=== PATIENT | male | born 1950 | race Caucasian/White ===

== ENCOUNTER 2020-01-14 12:00 | Outpatient (CLI) | payer MEDICARE, SELFPAY | END 2020-01-14 12:01 | disposition home or self-care (01) | LOC: SLEEP 01-15 09:37 | PROVIDERS: PCP Family Medicine; Visit Provider Family Medicine | DX: G47.33 Obstructive sleep apnea (adult) (pediatric) (principal) | CPT/HCPCS: G0399 ==

== ENCOUNTER 2023-01-19 16:19 | Outpatient (CLI) | payer MEDICARE, OTHER, SELFPAY ==
--- NOTE | 2023-01-19 16:23 | XRR_ITS ---
PROCEDURE INFORMATION: Exam: XR Left Knee Exam date and time: 01/19/2023 4:30 PM Age: 72 years old Clinical indication: Pain; Knee; Left; Additional info: Left medial knee pain TECHNIQUE: Imaging protocol: Radiologic exam of the left knee. Views: 3 views. COMPARISON: No relevant prior studies available. FINDINGS: Bones/joints: Osseous structures are intact. Negative for fracture. Joint spaces are preserved. Soft tissues: Normal. XR/XR knee LT 3V* [id number] IMPRESSION: No acute findings.
== END 2023-01-19 16:20 | disposition home or self-care (01) ==
PROVIDERS: PCP Family Medicine; Visit Provider Clinical Nurse Specialist Adult Health
DX: M25.562 Pain in left knee
CPT/HCPCS: 73562

== ENCOUNTER → 2023-03-22 07:40 | Outpatient (BNVA) | payer MEDICARE, OTHER, SELFPAY | PROVIDERS: PCP Family Medicine; Visit Provider Otolaryngology | DX: G47.33 Obstructive sleep apnea (adult) (pediatric) (principal) | CPT/HCPCS: 99203 ==

== ENCOUNTER → 2023-11-08 13:35 | Outpatient (BNVA) | payer MEDICARE, OTHER, SELFPAY | PROVIDERS: PCP Family Medicine; Referring Provider Electrodiagnostic Medicine; Visit Provider Student in an Organized Health Care Education/Training Program | DX: M65.312 Trigger thumb, left thumb | CPT/HCPCS: 73130; 99203 ==

== ENCOUNTER 2025-02-08 00:36 | Emergency (ER) | payer MEDICARE, SELFPAY ==
--- OUTSIDE RECORDS SUMMARY | 2025-02-08 00:41 | XMS_ITS | Clinical Summary ---
Author Organization [facility] Administrative Offices Address [address] [place] [id number] Care Team Providers Care Remote Sensing Analyst Name Role Phone Unavailable Primary Care Provider Unavailabl e Allergies No known active allergies Medications lisinopriL (PRINIVIL) 10 mg tablet 02/01/2022 Active omeprazole (PriLOSEC) 10 mg Capsule, Delayed Release(E.C.) Take 10 mg by mouth 1 time daily as needed. Active MULTIVITAMIN WITH MINERALS ORAL Take by mouth. 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 04/05/2022 Family History Medical History Relation Name Comments No Known Problems Father No Known Problems Mother Relation Name Status Comments Daughter Alive Father Mother Son Alive Social History Tobacco Use Types Packs/Day Years Used Date Smoking Tobacco: Never Smokeless Tobacco: Never Tobacco Cessation:Counseling Given: Not Answered Alcohol Use Standard Drinks/Week Comments Never 0 (1 standard drink = 0.6 oz pur e alcohol) Sex and Gender Information Value Date Recorded Sex Assigned at Not on file Legal Sex Male 3:45 PM CDT Gender Identity Not on file Sexual Orientation Not on file Last Filed Vital Signs Vital Sign Reading Time Taken Comments Blood Pressure 130/84 08/25/2022 10:47 AM CDT Pulse 65 08/25/2022 10:47 AM CDT Temperature 36.1 C (96.9 F) 05/06/2022 1:25 PM ESTIMATOR BINDING Respiratory Rate 18 05/06/2022 1:25 PM ESTIMATOR BINDING Oxygen Saturation 98% 08/25/2022 10:47 AM CDT Inhaled Oxygen Concentration - - Weight 111.6 kg (246 lb) 08/25/2022 10:47 AM CDT Height 185.4 cm (6' 1 ) 08/25/2022 10:47 AM CDT Body Mass Index 32.46 08/25/2022 10:47 AM CDT Plan of Treatment Health Maintenance Due Date Last Done Comments DTAP/TDAP/TD VACCINES (1 - Tdap) 12/19/1970 COLORECTAL SCREENING 12/19/1996 Colorectal Cancer Screening 12/19/1996 FIT-DNA Q 3 years 12/19/1996 FIT/FOBT Q 1 year 12/19/1996 Flex Sig/CT Colonography Q 5 years 12/19/1996 PNEUMOCOCCAL VACCINE 50+ YEA RS (1 of 1 - PCV) 12/19/2001 ZOSTER VACCINE (1 of 2) 12/19/2001 COVID-19 Vaccine (4 - season) 2024 11/12/2021, 12/27/2020, 12/06/2020 INFLUENZA VACCINE (#1) 2025 03/06/2021 RSV VACCINE (60+ or ) (1 - 1-dose 75+ series) 12/19/2026 Medical Devices Implanted Type Area Supervisor Gelatin Plant Device Identifier Shelf Expiration Date Model / Serial / Lot Pros Piston Eclipse 0.6x4.5mm [id number] - [id number] Implanted:Qty: 1 on 05/06/2022 by Yvan Anderson DO at [facility] Ear Left: Ear [employer] 01/04/2027 [id number] / / [id number] Hemostatic Surgifoam [id number] Implanted:Qty: 1 on 05/06/2022 by Yvan Anderson DO at [facility] Hemostatic Left: Ear [employer] [id number] 10/14/20251971 [id number] Insurance MEDICARE PART A AND B [employer] SUPP Advance Directives For more information, please contact: [phone] * Full Code (Latest Code Status on File) Date Activated Date Inactivated Comments 05/06/2022 11:53 AM 05/06/2022 5:09 PM * Full Code Date Activated Date Inactivated Comments 05/06/2022 8:20 AM 05/06/2022 11:53 AM
[2025-02-08 00:44] VITALS: BP 161/91; PULSE 71; RESP 20; TEMP 36.6; O2SAT 98; BMI 30.3
--- NOTE | 2025-02-08 00:47 | XRR_ITS ---
PROCEDURE INFORMATION: Exam: XR Right Shoulder Exam date and time: 02/08/2025 12:49 AM Age: 74 years old Clinical indication: Pain and injury or trauma; Fall; Blunt trauma (contusions or hematomas); Shoulder; Right; Additional info: Trauma/fall TECHNIQUE: Imaging protocol: Radiologic exam of the right shoulder. Views: 2 or more views. COMPARISON: No relevant prior studies available. FINDINGS: Bones/joints: Degenerative changes in the spine. Flowing syndesmophytes in the visualized thoracic spine, raising suspicion for ankylosing spondylitis. No acute fracture. No dislocation. Normal bone mineralization. Mild degenerative changes at the right shoulder. Lungs: Visualized lungs are clear. Vasculature: Vascular calcifications in the aorta. Soft tissues: No soft tissue swelling/emphysema. No radiopaque foreign body. XR/XR shoulder RT min 2V* [id number] IMPRESSION: 1. No acute fracture of the right shoulder. Followup radiographs recommended in 7-14 days if clinical concern for fracture persists. 2. Flowing syndesmophytes in the visualized thoracic spine, raising suspicion for ankylosing spondylitis. Recommend clinical correlation. 3. Incidental/nonacute findings are listed in the report.
--- NOTE | 2025-02-08 01:30 | ED_ITS ---
HPI - Extremity Problem General: Chief complaint: Extremity Injury, Upper Stated complaint: Hurt you shoulder Time Seen by Provider: 02/08/25 00:41 History of Present Illness: 74-year-old presents emergency room afte r he fell out of bed. He has some PTSD got alarmed woke up from sleep and fell out of bed landing on his right shoulder he has pain lateral aspect of the shoulder. Did not have any other injuries did not strike his head no loss consciousness Related Data Previous Rx's ?Medication ?Instructions ?Recorded pantoprazole 40 mg tablet,delayed 40 mg PO DAILY #90 t abs 01/20/23 release lisinopril 10 mg tablet 10 mg PO DAILY #90 tabs 07/08 09/28 diclofenac sodium 75 mg 75 mg PO Q12H PRN pain #20 t abs 02/08/25 tablet,delayed release Allergies Allergy/AdvReac Type Severity Reaction Status Date / Time No Known Allergies Allergy Verified 07/30/24 08:16 Review of Systems Musc: Reports: joint pain PFS ED PFSH: Medical History Essential hypertension Social History Smoking and tobacco/nicotine status: never used tobacco/nicotine Physical Exam Const: COMMON NORMALS: no acute distress GENERAL APPEARANCE: cooperative and comfortable ORIENTATION/CONSCIOUSNESS: Yes awake, Yes oriented to person, Yes oriented to place and Yes oriented to time HENMT: COMMON NORMALS: normocephalic, atraumatic and hearing grossly normal bilaterally HEAD & SCALP: normocephalic and atraumatic Resp: COMMON NORMALS: normal respiratory effort, No retractions and No use of accessory muscles Extremity: NARRATIVE EXTREMITY EXAM: No pain over the biceps tendon. With compression at the AC joint there is a slight crepitus. No obvious deformity. Neuro: SENSORIUM/ORIENTATION: Yes oriented to person, Yes oriented to place and Yes oriented to time Skin: COMMON NORMALS: no rashes or lesions noted GENERAL SKIN EXAM: no rashes or lesions noted Course Vital Signs: Vital signs: Vital Signs Temperature 97.8 F 02/08/25 00:44 Pulse Rate 71 02/08/25 00:44 Respiratory Rate 20 H 02/08/25 00:44 Blood Pressure 161/91 02/08/25 00:44 Pulse Oximetry 98 02/08/25 00:44 MDM - Extremity (Nontraumatic) Medical Decision Making On x-ray there is slight AC joint separation grade 1. Placed patient in sling anti-inflammatories refer to orthopedics All radiology interpretation(s) finalized by discharge Discharge Plan Discharge Patient Disposition: Home Clinical Impression: Separation of right acromioclavicular joint, type 1 Condition: Stable Prescriptions: New diclofenac sodium 75 mg tablet,delayed release (DR/EC) 75 mg PO Q12H PRN (Reason: pain) Qty: 20 0RF No Action pantoprazole 40 mg tablet,delayed release (DR/EC) 40 mg PO DAILY Qty: 90 0RF lisinopril 10 mg tablet 10 mg PO DAILY Qty: 90 3RF Discharge Orders: Discharge ED (Routine); Ordered 02/08/25 Ordered By: Jeremy Márquez Referrals: Christopher Casillas, [Primary Care Provider, Family Practice] Discharge Diet: Usual diet Discharge Activity: Limit activity as instructed Patient Instructions: Acromioclavicular Separation (ED), Opioid Safety, Pain Management, Patient Portal & Alirio Instructions Activity Restrictions/Additional Instructions: Thank you for choosing [facility] for your healthcare needs today. It is very important that you follow up as instructed or that you return to the Emergency Department should you have concerns or if your condition changes or worsens in any way. Emergency department visits are focused on emergent conditions, in some cases you may require further evaluation on an outpatient basis. You are seen in the emergency room after falling and your right shoulder x-ray. Shows grade 1 AC joint separation case management will have you follow-up with orthopedics next week wear a sling until then you can use diclofenac as needed. Should not raise your arm above shoulder level or reach out or extend the arm to filler picker objects. (Please note that included in your discharge packet is information concerning o pioid safety and pain management. This information is given to all patients were discharged from the ER regardless of their discharge diagnosis or the medicines they usually take or are prescribed.) Print Language: Sammarinese Coding Level of Care Code ED Top Precipitator Operator for Anjelica Corcoran
--- NOTE | 2025-02-08 01:47 | DCPLANNER ---
message sent to Ortho
== END 2025-02-08 01:27 | disposition home or self-care (01) ==
PROVIDERS: Emergency Provider Family Medicine; PCP Family Medicine
DX: S43.101A Unspecified dislocation of right acromioclavicular joint, initial encounter (principal); W06.XXXA Fall from bed, initial encounter
CPT/HCPCS: 73030; 99283